=== PATIENT | female | born 1965 | race African-American/Black ===

== ENCOUNTER 2020-06-14 17:18 | Emergency (ER) | payer MEDICAID ==
[~2020-06-14] VITALS: Ht 167.6 cm; Wt 117.9 kg
[2020-06-14 17:33] VITALS: BP_SYST 176
[2020-06-14 18:12] LABS: BASOPHILS % (AUTO) 0.7 % (0.0-2.0); EOSINOPHILS # (AUTO) 0.3 K/uL (0.0-0.4); EOSINOPHILS % (AUTO) 4.6 % (0.0-4.0); HEMATOCRIT 28.5 % (36-48); HEMOGLOBIN 8.5 g/dL (12.0-16.0); LYMPHOCYTES # (AUTO) 1.6 K/uL (1.0-5.5); LYMPHOCYTES % (AUTO) 25.5 % (20.5-51.5); MEAN CORPUSCULAR HEMOGLOBIN 20 pg (27-31); MEAN CORPUSCULAR HGB CONC 30 % (32-36); MEAN CORPUSCULAR VOLUME 67 fL (79.0-98.0); MONOCYTES # (AUTO) 0.5 K/uL (0.0-1.0); MONOCYTES % (AUTO) 8.3 % (1.7-9.3); NEUTROPHILS # (AUTO) 3.9 K/uL (1.8-7.7); NEUTROPHILS % (AUTO) 60.9 % (40.0-70.0); PLATELET COUNT (AUTO) 341 K/uL (130-430); RED BLOOD CELL COUNT(AUTO) 4.26 MIL/uL (4.2-6.2); RED CELL DISTRIBUTION WIDTH 21.8 % (9.0-15.0); WHITE BLOOD COUNT (AUTO) 6.4 K/uL (4.8-10.8)
[2020-06-14 18:29] LABS: PROTHROMBIN TIME 10.5 SECS (9.5-12.5)
[2020-06-14 18:30] LABS: CALCIUM 10.3 mg/dL (8.4-11.0); CREATININE 0.8 mg/dL (0.55-1.30); POTASSIUM 4.2 mmol/L (3.5-5.1)
[2020-06-14 18:39] LABS: ALBUMIN 3.5 g/dL (3.4-4.8); TOTAL BILIRUBIN 0.3 mg/dL (0.0-1.0)
[2020-06-14] MEDS ORDERED: RIVA20TA PO (18:53)
[2020-06-14] MEDS ORDERED: RIVA15TA PO (18:53)
[2020-06-14 19:08] VITALS: BP_SYST 169
== END 2020-06-14 19:02 | disposition home or self-care (01) ==
LOC: SED 17:18
DX: I82.401 Acute embolism and thrombosis of unspecified deep veins of right lower extremity (principal); I10 Essential (primary) hypertension
CPT/HCPCS: 36415; 80053; 83880; 85025; 85610-TC; 85730-TC; 93971; 99284

== ENCOUNTER 2020-07-19 15:20 | Inpatient (IN) | payer MEDICAID, SELFPAY ==
[~2020-07-19] VITALS: Ht 167.6 cm; Wt 116.8 kg
[~2020-07-19 15:20] MED LIST: RIVA15TA PO; RIVA20TA PO
[2020-07-19 15:35] VITALS: BP_SYST 167
[2020-07-19 16:18] LABS: HEMOGLOBIN 7.3 g/dL (12.0-16.0); MONOCYTES # (AUTO) 0.7 K/uL (0.0-1.0)
[2020-07-19 16:24] LABS: BASOPHILS % (AUTO) 0.5 % (0.0-2.0); EOSINOPHILS # (AUTO) 0.2 K/uL (0.0-0.4); EOSINOPHILS % (AUTO) 2.8 % (0.0-4.0); HEMATOCRIT 23.7 % (36-48); INR 1.4 (0.8-1.2); LYMPHOCYTES # (AUTO) 1.5 K/uL (1.0-5.5); LYMPHOCYTES % (AUTO) 23.5 % (20.5-51.5); MEAN CORPUSCULAR HEMOGLOBIN 21 pg (27-31); MEAN CORPUSCULAR HGB CONC 31 % (32-36); MEAN CORPUSCULAR VOLUME 68 fL (79.0-98.0); MONOCYTES % (AUTO) 11.1 % (1.7-9.3); NEUTROPHILS % (AUTO) 62.1 % (40.0-70.0); PLATELET COUNT (AUTO) 284 K/uL (130-430); PROTHROMBIN TIME 13.8 SECS (9.5-12.5); RED BLOOD CELL COUNT(AUTO) 3.46 MIL/uL (4.2-6.2); RED CELL DISTRIBUTION WIDTH 20.9 % (9.0-15.0); WHITE BLOOD COUNT (AUTO) 6.4 K/uL (4.8-10.8)
[2020-07-19 16:29] LABS: CALCIUM 9.9 mg/dL (8.4-11.0); CREATININE 0.82 mg/dL (0.55-1.30); POTASSIUM 3.7 mmol/L (3.5-5.1)
[2020-07-19 16:35] LABS: ALBUMIN 3.4 g/dL (3.4-4.8); TOTAL BILIRUBIN 0.2 mg/dL (0.0-1.0)
[2020-07-19 17:38] LABS: BILIRUBIN,URINE NEGATIVE (NEGATIVE); BLOOD, URINE NEGATIVE (NEGATIVE); CLARITY/URINE CLEAR (CLEAR); COLOR,URINE YELLOW (YELLOW); GLUCOSE,URINE NEGATIVE (NEGATIVE); KETONES,URINE NEGATIVE (NEGATIVE); LEUKOCYTE ESTERASE ,URINE NEGATIVE (NEGATIVE); NITRITE, URINE NEGATIVE (NEGATIVE); PROTEIN URINE TRACE (NEGATIVE)
[2020-07-19 17:56] LABS: BACTERIA,URINE FEW /HPF (None Seen); MUCUS,URINE None Seen /LPF (None Seen); RBC,URINE NONE SEEN /HPF (0-3); WBC,URINE 0-3 /HPF (0-3)
[2020-07-19] MEDS ORDERED: cloNIDine HCL 0.1 MG TABLET PO ONE (18:45)
[2020-07-19] MEDS ORDERED: ATEN-41 PO (19:50)
[2020-07-19] MEDS ORDERED: FER300L PO (19:50)
[2020-07-19 21:03] VITALS: BP_SYST 158
[2020-07-19] MEDS: ATENOLOL 50 MG TABLET (TENORMIN) PO SCH (23:04)
[2020-07-20 00:31] VITALS: BP_SYST 137
[2020-07-20 06:39] LABS: BASOPHILS % (AUTO) 0.5 % (0.0-2.0); EOSINOPHILS # (AUTO) 0.2 K/uL (0.0-0.4); EOSINOPHILS % (AUTO) 3.3 % (0.0-4.0); HEMATOCRIT 29.3 % (36-48); LYMPHOCYTES # (AUTO) 1.2 K/uL (1.0-5.5); MEAN CORPUSCULAR HEMOGLOBIN 23 pg (27-31); MEAN CORPUSCULAR HGB CONC 31 % (32-36); MEAN CORPUSCULAR VOLUME 72 fL (79.0-98.0); MONOCYTES # (AUTO) 0.7 K/uL (0.0-1.0); NEUTROPHILS # (AUTO) 3.5 K/uL (1.8-7.7); NEUTROPHILS % (AUTO) 62.2 % (40.0-70.0); PLATELET COUNT (AUTO) 249 K/uL (130-430); RED BLOOD CELL COUNT(AUTO) 4.04 MIL/uL (4.2-6.2); WHITE BLOOD COUNT (AUTO) 5.6 K/uL (4.8-10.8)
[2020-07-20 06:50] LABS: CALCIUM 9.4 mg/dL (8.4-11.0); CREATININE 0.64 mg/dL (0.55-1.30); POTASSIUM 4.3 mmol/L (3.5-5.1)
[2020-07-20 07:30] LABS: TOTAL IRON BIND. CAPACITY 334 ug/dL (250-450)
[2020-07-20 07:39] LABS: RED CELL DISTRIBUTION WIDTH 21.6 % (9.0-15.0)
[2020-07-20 07:40] LABS: HEMOGLOBIN 9.1 g/dL (12.0-16.0)
[2020-07-20 08:00] VITALS: BP_SYST 145
[2020-07-20] MEDS: FERROUS SULFATE 325 MG TABLET.DR PO SCH ×2 (09:16→21:03)
[2020-07-20] MEDS: ATENOLOL 50 MG TABLET (TENORMIN) PO SCH (09:16)
[2020-07-20] MEDS ORDERED: IOHEXOL 350 mgI/mL, 150 ML INFUS..BTL IV ONE (11:23)
[2020-07-20 12:05] VITALS: BP_SYST 140
[2020-07-20 16:00] VITALS: BP_SYST 136
[2020-07-20] MEDS ORDERED: RIVAROXABAN 10 MG TABLET PO SCH (18:00)
[2020-07-20 21:00] VITALS: BP_SYST 157
[2020-07-21 06:15] VITALS: BP_SYST 143
[2020-07-21 06:27] LABS: BASOPHILS # (AUTO) 0.1 K/uL (0.0-0.2); BASOPHILS % (AUTO) 0.8 % (0.0-2.0); EOSINOPHILS # (AUTO) 0.2 K/uL (0.0-0.4); HEMATOCRIT 30.5 % (36-48); HEMOGLOBIN 9.4 g/dL (12.0-16.0); LYMPHOCYTES # (AUTO) 1.5 K/uL (1.0-5.5); LYMPHOCYTES % (AUTO) 24.8 % (20.5-51.5); MEAN CORPUSCULAR HEMOGLOBIN 22 pg (27-31); MEAN CORPUSCULAR HGB CONC 31 % (32-36); MEAN CORPUSCULAR VOLUME 72 fL (79.0-98.0); MONOCYTES # (AUTO) 0.6 K/uL (0.0-1.0); MONOCYTES % (AUTO) 10.5 % (1.7-9.3); NEUTROPHILS # (AUTO) 3.7 K/uL (1.8-7.7); NEUTROPHILS % (AUTO) 60.9 % (40.0-70.0); PLATELET COUNT (AUTO) 238 K/uL (130-430); RED BLOOD CELL COUNT(AUTO) 4.26 MIL/uL (4.2-6.2); RED CELL DISTRIBUTION WIDTH 21.3 % (9.0-15.0); RETICULOCYTE COUNT 1.8 % (0.5-1.5); WHITE BLOOD COUNT (AUTO) 6.1 K/uL (4.8-10.8)
[2020-07-21 08:00] VITALS: BP_SYST 135
[2020-07-21] MEDS: FERROUS SULFATE 325 MG TABLET.DR PO SCH (08:41)
[2020-07-21] MEDS: ATENOLOL 50 MG TABLET (TENORMIN) PO SCH (08:42)
[2020-07-21 09:06] LABS: FOLATE (FOLIC ACID) 19.1 ng/mL (>3.0)
[2020-07-21] MEDS ORDERED: DOCU-144 PO (10:38)
[2020-07-21 10:39] VITALS: BP_SYST 140
[2020-07-21 12:13] VITALS: BP_SYST 140
== END 2020-07-21 12:00 | disposition home or self-care (01) | DRG 663 ==
LOC: SED 15:20 → STU 20:31
PROVIDERS: ADMIT Family Medicine; ATTEND Family Medicine
PROC: 30233N1 Transfusion of Nonautologous Red Blood Cells into Peripheral Vein, Percutaneous Approach (ICD-10-PCS; principal; 2020-07-19)
DX: D50.9 Iron deficiency anemia, unspecified (principal); Z68.41 Body mass index [BMI] 40.0-44.9, adult; D25.9 Leiomyoma of uterus, unspecified; I10 Essential (primary) hypertension; E66.9 Obesity, unspecified; Z86.718 Personal history of other venous thrombosis and embolism; Z79.01 Long term (current) use of anticoagulants; Z79.899 Other long term (current) drug therapy; Z20.822 Contact with and (suspected) exposure to COVID-19
CPT/HCPCS: 36415; 71045; 71275; 76376; 80048; 80053; 81000; 82607; 82728; 82746; 83540; 83550; 85025; 85044; 85379; 85610-TC; 86886; 86900; 86901; 86920; 93005; 93971; 99285; G0378; J7040; P9021; Q9967

== ENCOUNTER 2020-08-31 00:55 | Emergency (ER) | payer MEDICAID, SELFPAY ==
[~2020-08-31] VITALS: Ht 167.6 cm; Wt 108.9 kg
[~2020-08-31 00:55] MED LIST changes: +ATEN-41 PO; +DOCU-144 PO; +FER300L PO; -RIVA15TA PO
[2020-08-31 01:10] VITALS: BP_SYST 148
--- NOTE | 2020-08-31 01:10 | NUR ---
PT TO REMAIN IN ER LOBBY UNTIL ER BED BECOMES AVAILABLE
--- NOTE | 2020-08-31 01:38 | NUR ---
PT TO BED 7 FOR EVALUATION. REPORT GIVEN TO ALVARO SHIN WHO WILL ASSUME CARE.
--- NOTE | 2020-08-31 01:40 | NUR ---
PT AAO AND AMBULATORY REPORTING WORSENING WEAKNESS AND VAGINAL BLEEDING SINCE WEDNESDAY. PT REPORTS THAT IT HAS BEEN CONSTANT WITH LARGE CLOTS. PT IS CURRENTLY ON A BLOOD THINNER FOR PRIOR DVT AND HAS HAD TO CHANGED MULTIPLE GARMENTS OF CLOTHING TODAY DUE TO INCREASING BLEEDING. PT IS NOTED PALE, WEAK, AND DIAPHORETIC. V/S REPORTED TO .
[2020-08-31] MEDS ORDERED: NACL 0.9% 1,000 ML IV ONE ×2 (01:45→02:30)
--- NOTE | 2020-08-31 01:45 | NUR ---
DR. MENON AT BEDSIDE TO EVALUATE PT STATUS.
[2020-08-31 02:04] LABS: BASOPHILS % (AUTO) 0.5 % (0.0-2.0); EOSINOPHILS # (AUTO) 0.1 K/uL (0.0-0.4); EOSINOPHILS % (AUTO) 1.5 % (0.0-4.0); HEMATOCRIT 35.1 % (36-48); HEMOGLOBIN 10.8 g/dL (12.0-16.0); LYMPHOCYTES # (AUTO) 1.5 K/uL (1.0-5.5); LYMPHOCYTES % (AUTO) 18.6 % (20.5-51.5); MEAN CORPUSCULAR HEMOGLOBIN 24 pg (27-31); MEAN CORPUSCULAR HGB CONC 31 % (32-36); MEAN CORPUSCULAR VOLUME 79 fL (79.0-98.0); MONOCYTES # (AUTO) 0.6 K/uL (0.0-1.0); MONOCYTES % (AUTO) 7.4 % (1.7-9.3); NEUTROPHILS # (AUTO) 5.8 K/uL (1.8-7.7); PLATELET COUNT (AUTO) 225 K/uL (130-430); RED BLOOD CELL COUNT(AUTO) 4.43 MIL/uL (4.2-6.2); RED CELL DISTRIBUTION WIDTH 19.6 % (9.0-15.0)
[2020-08-31 02:08] LABS: CALCIUM 10.6 mg/dL (8.4-11.0); CREATININE 0.86 mg/dL (0.55-1.30)
--- NOTE | 2020-08-31 02:15 | NUR ---
Assumed care of patient upon completion of lunch coverage. Introduced self to patient, positioned for comfort and safety w/ bed to low position sr up. patient currently receiving iv fluids as ordered. iv sites patent and intact. Continue to monitor. Patient resting quietly. No acute distress noted. Vital signs within normal range.
[2020-08-31 02:20] LABS: INR 1.2 (0.8-1.2)
[2020-08-31 03:55] LABS: BILIRUBIN,URINE NEGATIVE (NEGATIVE); BLOOD, URINE 3+ (NEGATIVE); CLARITY/URINE CLOUDY (CLEAR); COLOR,URINE RED (YELLOW); GLUCOSE,URINE NEGATIVE (NEGATIVE); KETONES,URINE NEGATIVE (NEGATIVE); LEUKOCYTE ESTERASE ,URINE NEGATIVE (NEGATIVE); NITRITE, URINE NEGATIVE (NEGATIVE); PROTEIN URINE 2+ (NEGATIVE); UROBILINOGEN,URINE 0.2 (0.2-1.0)
[2020-08-31 04:06] LABS: RBC,URINE >100 /HPF (0-3)
[2020-08-31 04:07] LABS: BACTERIA,URINE FEW /HPF (None Seen); WBC,URINE 0-3 /HPF (0-3)
--- NOTE | 2020-08-31 04:15 | NUR ---
ASSISTED DR. MENON WITH PELVIC EXAM. PT TOLERATED WELL.
--- NOTE | 2020-08-31 04:32 | NUR ---
CALLED LAB FOR RE-DRAW OF CBC. INTEL RECRUITER TO COME FOR BLOOD DRAW. PELVIC U/S ALSO NOTED ORDERED BY , WAITING FOR RADIOLOGY.
[2020-08-31] MEDS ORDERED: METOCLOPRAMIDE HCL 10 MG/2 ML VIAL ONE (04:36)
--- NOTE | 2020-08-31 04:39 | NUR ---
LAB AT BEDSIDE FOR REDRAW.
[2020-08-31] MEDS ORDERED: METOCLOPRAMIDE HCL 10 MG/2 ML VIAL IVP ONE (04:45)
[2020-08-31 04:52] LABS: BASOPHILS % (AUTO) 0.6 % (0.0-2.0); EOSINOPHILS # (AUTO) 0.1 K/uL (0.0-0.4); EOSINOPHILS % (AUTO) 0.7 % (0.0-4.0); HEMATOCRIT 31.4 % (36-48); HEMOGLOBIN 9.8 g/dL (12.0-16.0); LYMPHOCYTES # (AUTO) 1.2 K/uL (1.0-5.5); LYMPHOCYTES % (AUTO) 14.8 % (20.5-51.5); MEAN CORPUSCULAR HEMOGLOBIN 25 pg (27-31); MEAN CORPUSCULAR HGB CONC 31 % (32-36); MEAN CORPUSCULAR VOLUME 79 fL (79.0-98.0); MONOCYTES # (AUTO) 0.4 K/uL (0.0-1.0); MONOCYTES % (AUTO) 4.7 % (1.7-9.3); NEUTROPHILS # (AUTO) 6.4 K/uL (1.8-7.7); NEUTROPHILS % (AUTO) 79.2 % (40.0-70.0); PLATELET COUNT (AUTO) 174 K/uL (130-430); RED BLOOD CELL COUNT(AUTO) 3.99 MIL/uL (4.2-6.2); RED CELL DISTRIBUTION WIDTH 19.5 % (9.0-15.0)
--- NOTE | 2020-08-31 06:03 | NUR ---
Returned from radiology/[facility], back to [facility].
[2020-08-31 06:11] VITALS: BP_SYST 128
[2020-08-31] MEDS ORDERED: HYDR-3917 PO (06:11)
[2020-08-31] MEDS ORDERED: METO-290 PO (06:11)
--- NOTE | 2020-08-31 06:25 | NUR ---
Patient given written and verbal discharge instructions and verbalizes understanding. ER MD discussed with patient the results and treatment provided. Patient in stable condition. ID arm band removed. IV catheter removed intact and dressing applied, no active bleeding. Rx of norco and reglan given. Patient educated on pain management and to follow up with PMD. Pain Scale 0. Opportunity for questions provided and answered. Medication side effect fact sheet provided.
== END 2020-08-31 06:25 | disposition home or self-care (01) ==
LOC: SED 00:55
DX: D62 Acute posthemorrhagic anemia (principal); N93.8 Other specified abnormal uterine and vaginal bleeding; R57.8 Other shock; D64.9 Anemia, unspecified; I10 Essential (primary) hypertension; Z79.899 Other long term (current) drug therapy
CPT/HCPCS: 36415; 76830; 76857; 80048; 81000; 85025; 85610; 85730; 86886; 86900; 86901; 96361; 96374; 99284; J2765; J7030